=== PATIENT | female | born 1970 | race Caucasian/White ===

== ENCOUNTER 2020-09-30 08:06 | Emergency (ER) | payer MEDICAID ==
[~2020-09-30] VITALS: Ht 170.2 cm; Wt 68.2 kg
[~2020-09-30 08:06] MED LIST: AMITIZA24 MCG PO; BUPROPION XL300 MG PO; CYCLOBENZAPRINE10 MG PO; NEXIUM40 MG PO; PEPCID40 MG PO; PERCOCET 10/3251 TA1 PO; PRENAVITE1 TAB PO; RESTORIL15 MG PO; VALTREX1000 MG PO; VITAMIN E400 UNI2 PO; XANAX0.5 MG PO; [UNRECOGNIZED DRUG - OTHER] PO
[2020-09-30 08:14] VITALS: Ht 170.2 cm; Wt 68.2 kg
[2020-09-30] MEDS ORDERED: UNISOM SLEEP AI25 MG PO (08:19)
[2020-09-30] MEDS ORDERED: INDERAL LA120 MG PO (08:19)
[2020-09-30] MEDS ORDERED: ZESTRIL10 MG PO (08:19)
[2020-09-30] MEDS ORDERED: CALCIUM 600 +1 EAC3 PO (08:20)
[2020-09-30] MEDS ORDERED: AMERGE2.5 MG PO (08:20)
[2020-09-30 09:32] LABS: BASOPHILS 0.3 % (0-2); EOSINOPHILS 0.6 % (0-7); HEMATOCRIT 40.5 % (36.0-48.0); HEMOGLOBIN 13.7 g/dL (12-16); IMMATURE GRANULOCYTES 0.1 % (0-5); LYMPHOCYTE ABS# 1.03 10x3/uL (1.18-3.74); LYMPHOCYTES 10.2 % (15-50); MCH 33.7 pg (26.0-34.0); MCHC 33.8 g/dL (31.0-37.0); MCV 99.8 fL (80.0-100.0); MEAN PLATELET VOLUME 9.6 fL (7.4-10.4); MONOCYTES 4.8 % (2-11); NEUTROPHIL ABS# 8.52 10x3/uL (1.56-6.13); PLATELET COUNT 231 10x3/uL (130-400); RBC 4.06 10x6/uL (4.00-5.40); RDW 13.3 % (11.5-14.5); WBC 10.1 10x3/uL (4.8-10.8)
[2020-09-30] MEDS ORDERED: PENICILLIN V P500 MG PO ×2 (09:32→11:33)
[2020-09-30] MEDS ORDERED: PERCOCET 5-3251 TAB PO ×2 (09:32→11:33)
[2020-09-30 09:46] LABS: ANION GAP 13.1 mmol/L (8-16); CALCIUM 8.8 mg/dL (8.5-10.1); CREATININE - SERUM 0.9 mg/dL (0.6-1.3); POTASSIUM - SERUM 4.1 mmol/L (3.5-5.1)
[2020-09-30 09:52] LABS: ALBUMIN 3.7 g/dL (3.4-5.0); BILIRUBIN - TOTAL 0.27 mg/dL (0.2-1.3); PROTEIN - SERUM 7.1 g/dL (6.4-8.2)
[2020-09-30 10:00] LABS: BACTERIA NONE SEEN HPF (NONE SEEN); BILIRUBIN NEGATIVE (NEGATIVE); KETONE NEGATIVE (NEGATIVE); NITRITE NEGATIVE (NEGATIVE); SQUAMOUS EPITHELIAL NONE SEEN HPF (0-4); UROBILINOGEN NORMAL mg/dL (< 2); WHITE CELLS - URINE 0-5 HPF (0-4)
[2020-09-30 11:27] VITALS: BP 133/85
== END 2020-09-30 11:42 | disposition home or self-care (01) ==
LOC: D.ER 08:06
PROVIDERS: Emergency Medicine
DX: S09.93XA Unspecified injury of face, initial encounter (principal); M54.2 Cervicalgia; S01.512A Laceration without foreign body of oral cavity, initial encounter; S10.93XA Contusion of unspecified part of neck, initial encounter; W19.XXXA Unspecified fall, initial encounter; Y93.9 Activity, unspecified; Y92.9 Unspecified place or not applicable; I10 Essential (primary) hypertension; K21.9 Gastro-esophageal reflux disease without esophagitis; Z72.0 Tobacco use